=== PATIENT | male | born 2000 | race Caucasian/White ===

== ENCOUNTER 2021-12-20 16:51 | Day surgery (SDC) | payer OTHER, BC ==
[2021-12-20] MEDS ORDERED: Clindamycin Phosphate in D5W 900 MG in Premix Bag 1 BAG IV ONE ×2 (17:55)
[2021-12-20] MEDS ORDERED: Levofloxacin/Dextrose 5%-Water 500 MG in Premix Bag 1 BAG IV SCH (18:00)
[2021-12-20] MEDS ORDERED: Bupivacaine 0.5% 30 ML SDV ONE (18:04)
[2021-12-20] MEDS ORDERED: Lidocaine 1% with EPINEPHrine 1:100,000 10 ML MDV ONE ×3 (18:04→18:15)
[2021-12-20] MEDS ORDERED: Propofol 200 MG/20 ML SDV ONE (18:15)
[2021-12-20] MEDS ORDERED: fentaNYL 250 MCG/5 ML SDV ONE (18:16)
[2021-12-20] MEDS ORDERED: Lidocaine 1% 6 ML ONE (18:16)
[2021-12-20] MEDS ORDERED: Succinylcholine/Sod PF 100 MG/5 ML SYRINGE IV ONE (18:16)
[2021-12-20] MEDS ORDERED: Midazolam 1 MG/ML 2 ML SDV ONE (18:16)
[2021-12-20] MEDS ORDERED: Dexamethasone 4 MG/ML 5 ML MDV ONE (18:16)
[2021-12-20] MEDS ORDERED: Ondansetron 4 MG/2 ML SDV ONE (18:16)
[2021-12-20] MEDS ORDERED: Rocuronium 50 MG/5 ML Vial ONE (18:17)
[2021-12-20] MEDS ORDERED: Lactated Ringers 1,000 ML ONE (18:38)
[2021-12-20] MEDS ORDERED: Metoclopramide 10 MG/2 ML SDV ONE (19:05)
[2021-12-20] MEDS ORDERED: fentaNYL 100 MCG/2 ML SDV IVPUSH PRN (19:07)
[2021-12-20] MEDS ORDERED: HYDROmorphone 0.5 MG/0.5 ML Syringe IVPUSH PRN (19:07)
[2021-12-20] MEDS ORDERED: Ketorolac 30 MG/ML SDV ONE (19:16)
[2021-12-20 21:17] VITALS: BP 110/60; PULSE 80
== END 2021-12-20 21:07 ==
LOC: JD.ED 16:51 → JD.SDS 17:29 → JD.ED 18:00 → JD.SDS 21:07
PROVIDERS: ATTEND Surgery
DX: K35.30 Acute appendicitis with localized peritonitis, without perforation or gangrene (principal); F17.210 Nicotine dependence, cigarettes, uncomplicated; Z79.899 Other long term (current) drug therapy; Z88.1 Allergy status to other antibiotic agents; Z98.890 Other specified postprocedural states
CPT/HCPCS: 00840; 99140; 99284; J0330; J1100; J1885; J1956; J2250; J2405; J2704; J2710; J2765; J3010; J3490; J7120